=== PATIENT | male | born 1990 | race Caucasian/White ===

== ENCOUNTER → 2020-03-25 | Emergency (ER) | payer OTHER ==
[~2020-03-25] VITALS: Ht 162.6 cm; Wt 77.1 kg
== END | disposition expired ==
LOC: ER 16:33 → CPU-OBS 17:27 → ER 17:27
DX: T75.1XXA Unspecified effects of drowning and nonfatal submersion, initial encounter (principal); Y93.89 Activity, other specified; Y92.89 Other specified places as the place of occurrence of the external cause; Y99.8 Other external cause status
CPT/HCPCS: 31500; 94002; 82805; 36600; G0378; G0379; 93005